=== PATIENT | female | born 1960 | race Caucasian/White ===

== ENCOUNTER 2024-08-21 10:54 | Outpatient (AMB) | payer OTHER, MEDICAID, SELFPAY ==
--- NOTE | 2024-08-21 11:02 | MHC.OFFVIS ---
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 Clinical Rn Liaison Required: No Information Interpreted: clinical only Spice Grinder: Spice Grinder Present Allergies methotrexate Allergy (Verified 08/21/24 11:11) Itching Penicillins Allergy (Verified 08/21/24 11:11) Unknown Medication List - Last Reconciled 08/21/24 by Alana Rendon CNM bupropion HCl XL 300 mg PO QAM duloxetine 60 mg PO DAILY ezetimibe 10 mg PO DAILY gabapentin 300 mg PO DAILY lisinopril 20 mg PO DAILY meloxicam 15 mg PO DAILY montelukast 10 mg PO DAILY omeprazole 20 mg PO DAILY pravastatin 80 mg PO DAILY tofacitinib ER (Xeljanz XR) 11 mg PO DAILY Post menopausal: Yes (2010) HPI HPI 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 She recently had her mammogram she lives with her family she cooks and cleans and goes for walks her she. She does not have any real glove operator or other concerns she sees her primary care provider and other physicians for her other healthcare needs. [facility] Medical History (Updated 08/21/24 @ 12:02 by Alana Rendon CNM) PTSD (post-traumatic stress disorder) Anxiety Depression Arthritis Hyperlipemia HTN (hypertension) Surgical History (Updated 08/21/24 @ 11:20 by Sharona Ogden CMA) History of lung biopsy History of dental surgery S/P Family History (Updated 08/21/24 @ 11:24 by Sharona Ogden CMA) Maternal Grandfather Colon cancer Paternal Grandfather Prostate cancer Social History (Updated 08/21/24 @ 11:25 by Sharona Ogden CMA) Alcohol intake: current Alcohol intake frequency: holidays/special occasions only Tobacco use type: Cigarette Cigarettes Per Day: 10 Female Reproductive History Menstrual Age of Menarche: 12 control method: none Total pregnancies: 1 Full term: 1 Date of last pap smear: 11/12/16 (negative) History of abnormal pap smear: No Date of Mammogram: 08/04/24 (negative) Physical Exam Vital Signs: Last Vital Signs BP 122/78 08/21/24 11:09 BMI result Body Mass Index 31.1 Const General: healthy appearing, comfortable, no acute distress, well developed and alert Nutritional Appearance: average body habitus Orientation/consciousness: patient oriented x3 Limitations: no limitations HEENT Head: Yes normocephalic Neck Neck: Yes normal visual inspection Chest Chest palpation & inspection: normal inspection of the chest Breast/axilla inspection: normal inspection of the breasts and normal inspection of the axillae Breast/axilla palpation: normal palpation of the breasts and normal palpation of the axillae Resp Effort & Inspection: normal respiratory effort GI Inspection: Yes normal to inspection, No Abdominal wall edema and No distended Palpation (GI): Soft to palpation and nontender Other: Normal postmenopausal exam atrophic vagina yellowish clear discharge cervix multiparous postmenopausal smooth mobile nontender uterus small midposition nontender fair to good Kegel adnexa nonenlarged. General: Yes bladder normal to palpation External Female Exam: normal external appearance and normal appearance of the urethra Speculum Exam - Vagina: normal appearance of the vagina, normal palpation and normal vaginal discharge Speculum Exam - Cervix: normal appearance of the cervix, normal palpation and nontender Bimanual exam- vagina & uterus: normal bimanual exam, normal palpation, uterine size normal, bladder normal to palpation, consistency normal, normal palpation, uterine mobility normal, uterine shape normal, No Cervical tenderness present, non-tender and no cervical motion tenderness Bimanual Exam- Adnexa, other: normal adnexae, no masses, normal and No adnexal tenderness Neuro General: patient oriented x3 Assessment & Plan Assessment & Plan (1) Women's annual routine gynecological examination: Code(s): Z01.419 - Encounter for gynecological examination (general) (routine) without abnormal findings Category: Medical (2) Postmenopausal: Code(s): Z78.0 - Asymptomatic menopausal state Category: Medical (3) Cervical cancer screening: Comment: No history of abnormals, has been getting them with her primary. Pap done 08/21/2024 Code(s): Z12.4 - Encounter for screening for malignant neoplasm of cervix Category: Medical Plan -----Discussed in this visit the following: healthy balanced diet, regular and consistent exercise, getting recommended health screens, doing the best she can for her particular health concerns, kegel exercises, pap smear screening and followup recommendations, mammography screening and SBE, normal changes in cycles in her life stage--- . She just had her mammogram. Discussed that in her age range her next Pap would be due in 5 years and why we say come back as a year if her other healthcare needs dictate use of that time and she is getting seen by primary care she may make her best decisions for herself about that. Coding Level of Care Code New Pt Prev Care 40-64y(77358) Diagnoses Women's annual routine gynecological examination Z01.419 Postmenopausal Z78.0 Cervical cancer screening Z12.4
[2024-08-21 11:09] VITALS: BP 122/78; BMI 31.1
== END 2024-08-21 12:22 | disposition home or self-care (01) ==
PROVIDERS: PCP Internal Medicine; Visit Provider Advanced Practice Midwife
DX: Z01.419 Encounter for gynecological examination (general) (routine) without abnormal findings (principal); Z78.0 Asymptomatic menopausal state; Z12.4 Encounter for screening for malignant neoplasm of cervix
CPT/HCPCS: 99386

== ENCOUNTER 2024-08-21 10:54 | Outpatient (REF) | payer OTHER, MEDICAID, SELFPAY ==
[2024-08-24 10:13] LABS: HPV 16,18/45 See PAP report
== END 2024-08-21 10:55 | disposition home or self-care (01) ==
LOC: HO.LNP 10:54
PROVIDERS: PCP Internal Medicine; Visit Provider Advanced Practice Midwife
DX: Z01.419 Encounter for gynecological examination (general) (routine) without abnormal findings (principal)
CPT/HCPCS: 87624; 88175

== ENCOUNTER 2024-09-07 10:12 | Outpatient (REF) | payer OTHER, MEDICAID, SELFPAY | END 2024-09-07 10:13 | disposition home or self-care (01) | LOC: HO.LNP 10:12 | PROVIDERS: PCP Internal Medicine; Visit Provider Obstetrics & Gynecology | DX: R87.610 Atypical squamous cells of undetermined significance on cytologic smear of cervix (ASC-US) (principal); R87.810 Cervical high risk human papillomavirus (HPV) DNA test positive | CPT/HCPCS: 57454; 88305 ==

== ENCOUNTER 2024-09-07 10:12 | Outpatient (AMB) | payer OTHER, MEDICAID, SELFPAY ==
--- NOTE | 2024-09-07 10:18 | MHC.OFFVIS ---
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 Required: No Information Interpreted: non-clinical & clinical Cart Attendant: Cart Attendant Present (Rosie MADRIGAL) Accompanied by: Self / Same As Patient Allergies methotrexate Allergy (Verified 09/07/24 10:21) Itching Penicillins Allergy (Verified 09/07/24 10:21) Unknown HPI Comments Details: Presenting with abnormal Pap smear showing ASCUS HPV positive negative HPV 16/18/45 [facility] Medical History PTSD (post-traumatic stress disorder) Anxiety Depression Arthritis Hyperlipemia HTN (hypertension) Surgical History History of lung biopsy History of dental surgery S/P Family History Maternal Grandfather Colon cancer Paternal Grandfather Prostate cancer Social History Alcohol intake: current Alcohol intake frequency: holidays/special occasions only Tobacco use type: Cigarette Cigarettes Per Day: 10 Female Reproductive History Menstrual Age of Menarche: 12 Physical Exam Vital Signs: Last Vital Signs BP 142/60 H 09/07/24 10:20 BMI result Body Mass Index 31.0 Office Procedures Colposcopy Colposcopy: Pre-Procedure Counseling: Before beginning the procedure, I conducted comprehensive counseling with the patient. We thoroughly discussed the procedure itself, including its details, alternatives, and all associated risks. This included but not limited to the following complications such as bleeding, infection, and injury to the vagina, bladder, and vessels, as well as the potential need for transfusion with all its associated risks. Subsequently, the patient sign the consent. Pap smear result: Ascus/HPV positive, HPV 16/18/45 negative Procedure: During the procedure, the following steps were performed: A speculum was inserted, and acetic acid was applied. Colposcopy was conducted, allowing visualization of the transformation zone. Acetowhite lesions were identified at the 3+5+6+11+12+1 o'clock position. Cervical biopsies were obtained from the 3+5+6+11+12+1 o'clock position, followed by an endocervical curettage (ECC). Vaginoscopy of the upper vagina revealed no evidence of aceto-white lesions. Hemostasis was achieved using Monsel solution, and the patient tolerated the procedure well. Post-Procedure Instructions: The patient was advised to promptly contact the office or the after hours answering service or go to the emergency room if experiencing a temperature exceeding 100.4?F, abdominal pain, nausea/vomiting, or bleeding. Additionally, the patient was instructed to abstain from vaginal intercourse and bathtub use. The patient confirmed understanding of these instructions. Discharge Instructions: The patient was instructed to schedule a follow-up appointment in 2 weeks for further evaluation and management. Please note that this note was generated using a voice recognition program, and errors may have occurred during paint roller covermaker. [id number]-[id number] of cervix including upper vagina with biopsy and ECC Procedure code (CPT) selection complete Assessment & Plan Assessment & Plan (1) ASCUS with positive high risk HPV cervical: Code(s): R87.610 - Atypical squamous cells of undetermined significance on cytologic smear of cervix (ASC-US); R87.810 - Cervical high risk human papillomavirus (HPV) DNA test positive Category: Medical Plan: Discussed with the patient the result of her abnormal pap, its significance, risk of progression, persistence, and regression. the false positive/negative rate of a Pap smear as a screening test in detecting cervical cancer and the indication for a diagnostic test -colposcopy, biopsy, endocervical curettage. The patient verbalized understanding and agreed with the plan, all questions answered. Colpo/biopsy/ECC done, see procedure note Orders: Orders AMB Colposcopy Today R87.610 - Atypical squamous cells of undetermined significance on cytologic smear of cervix (ASC-US), R87.810 - Cervical high risk human papillomavirus (HPV) DNA test positive Coding Level of Care Code Procedure Only Diagnoses ASCUS with positive high risk HPV cervical R87.610; R87.810 CPT Codes Colposcopy - CPT: 66842-Jicxmiejt of cervix including upper vagina with biopsy and ECC ([id number])
[2024-09-07 10:20] VITALS: BP 142/60; BMI 31.0
== END 2024-09-07 10:54 | disposition home or self-care (01) ==
PROVIDERS: PCP Internal Medicine; Visit Provider Obstetrics & Gynecology
DX: R87.610 Atypical squamous cells of undetermined significance on cytologic smear of cervix (ASC-US) (principal); R87.810 Cervical high risk human papillomavirus (HPV) DNA test positive
CPT/HCPCS: 57454

== ENCOUNTER 2024-09-22 08:44 | Outpatient (AMB) | payer OTHER, MEDICAID, SELFPAY ==
--- NOTE | 2024-09-22 08:49 | A.OFFVIS_ITS ---
Intake Visit Reasons: Colpo Results Platform Material Handling Supervisor: Platform Material Handling Supervisor Present (Jen) Accompanied by: Self / Same As Patient Allergies methotrexate Allergy (Verified 09/22/24 08:50) Itching Penicillins Allergy (Verified 09/22/24 08:50) Unknown HPI Comments Details: Presenting post colpo for follow-up. The patient is doing well with no complaints. The pathology showed the following: A. Endocervix, curettage: Endocervical mucosa and squamous epithelium within normal limits; no atypia identified. B. Cervix, 1 o'clock, biopsy: Scant degenerated endocervical and squamous epithelium; mucoinflammatory material; no atypia identified. C. Cervix, 3 o'clock, biopsy: Squamous and endocervical epithelium within normal limits; no atypia identified. D. Cervix, 5 o'clock, biopsy: Mildly inflamed squamous mucosa with reactive changes; no endocervical epithelium present; no atypia identified. E. Cervix, 6 o'clock, biopsy: Squamous mucosa within normal limits; no endocervical epithelium present; no atypia identified. F. Cervix, 11 o'clock, biopsy: Mildly inflamed squamous mucosa with reactive changes; no endocervical epithelium present; no atypia identified. G. Cervix, 12 o'clock, biopsy: - Low-grade squamous intraepithelial lesion (WENDY 1). - Background inflamed cervical transformation zone mucosa [facility] Medical History (Updated 09/22/24 @ 08:52 by Sylvain Austin MD) Dysplasia of cervix, low grade (WENDY 1) PTSD (post-traumatic stress disorder) Anxiety Depression Arthritis Hyperlipemia HTN (hypertension) Surgical History History of lung biopsy History of dental surgery S/P Family History Maternal Grandfather Colon cancer Paternal Grandfather Prostate cancer Social History Alcohol intake: current Alcohol intake frequency: holidays/special occasions only Tobacco use type: Cigarette Cigarettes Per Day: 10 Female Reproductive History Menstrual Age of Menarche: 12 Review of Systems Const All systems reviewed & are unremarkable except as noted in HPI and below Reports as per HPI and Reports no additional complaints GI Reports no additional complaints Reports no additional complaints Assessment & Plan Assessment & Plan (1) Dysplasia of cervix, low grade (WENDY 1): Comment: 09/06 ascus HPV positive, colpo biopsy ECC WENDY 1 Code(s): N87.0 - Mild cervical dysplasia Category: Medical Plan: Discussed with the patient the pathology results of the colposcopy biopsies & endocervical curettage ( mild dysplasia-WENDY 1). Discussed with the patient the sensitivity specificity, positive and negative predictive value in detecting cervical cancer in addition discussed the regression, persistence and progression rates. Recommended co-testing in 12 months, if cytology and or HPV are abnormal will proceed was colposcopy biopsy and endocervical curettage, if lesions gets worse or stays persistent for 2 years will proceed with loop electric excision procedure. Instructions given to the patient to schedule a co test appointment in 1 year. All questions answered the patient verbalized understanding. Coding Level of Care Code Est Pt Level 3 (96925) Diagnoses Dysplasia of cervix, low grade (WENDY 1) N87.0
== END 2024-09-22 09:04 | disposition home or self-care (01) ==
PROVIDERS: PCP Internal Medicine; Visit Provider Obstetrics & Gynecology
DX: N87.0 Mild cervical dysplasia (principal)
CPT/HCPCS: 99213

== ENCOUNTER → 2024-09-22 08:44 | Outpatient (BNVA) | payer OTHER, MEDICAID, SELFPAY | PROVIDERS: PCP Internal Medicine; Visit Provider Obstetrics & Gynecology ==

== ENCOUNTER 2024-12-09 08:42 | Outpatient (AMB) | payer OTHER, MEDICAID, SELFPAY ==
--- NOTE | 2024-12-09 08:43 | A.OFFVIS_ITS ---
Vital Signs 12/09/24 08:52 Height 5 ft 6 in Weight 198 lb BMI 32.0 BP 142/69 H Blood Pressure Location Rt brachial Position Sitting Pulse 92 Intake Visit Reasons: Colonoscopy Screening Intake Note: This patient presents for Colonoscopy Screening. Pt c/o; reports no rectal bleeding, pain, changes to bowel habits, reports her previous colonoscop[facility]. 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: No Accompanied by: Self / Same As Patient Allergies seafood Allergy (Severe, Verified 12/09/24 08:56) Unknown methotrexate Allergy (Verified 12/09/24 08:56) Itching Penicillins Allergy (Verified 12/09/24 08:56) Unknown Medication List - Last Reconciled 12/09/24 by Chang Ramos MD bupropion HCl XL 300 mg PO QAM duloxetine 60 mg PO DAILY ezetimibe 10 mg PO DAILY gabapentin 300 mg PO DAILY lisinopril 20 mg PO DAILY meloxicam 15 mg PO DAILY montelukast 10 mg PO DAILY omeprazole 20 mg PO DAILY pravastatin 80 mg PO DAILY tofacitinib ER (Xeljanz XR) 11 mg PO DAILY HPI HPI Colonoscopy Screening: Details: 64 year female referred for screening colonoscopy. She denies GI complaints. She denies a strong family history of colon cancer. She says her last colonoscopy was more than 10 years ago done in [place]. She says this was unremarkable at that time. She admits to smoking half a pack a day. [facility] Medical History (Updated 12/09/24 @ 09:10 by Chang Ramos MD) Smoker Colon cancer screening Dysplasia of cervix, low grade (WENDY 1) PTSD (post-traumatic stress disorder) Anxiety Depression Arthritis Hyperlipemia HTN (hypertension) Surgical History History of lung biopsy History of dental surgery S/P Family History Maternal Grandfather Colon cancer Paternal Grandfather Prostate cancer Social History Alcohol intake: current Alcohol intake frequency: holidays/special occasions only Tobacco use type: Cigarette Cigarettes Per Day: 10 Female Reproductive History Menstrual Age of Menarche: 12 Review of Systems Const Denies chills and Denies fever(s) Card Denies chest pain, Denies dyspnea and Denies dyspnea on exertion Resp Denies cough, Denies dyspnea and Denies dyspnea on exertion GI Denies hematochezia and Denies change in bowel habits Denies hematuria Musc Denies back pain and Denies limited range of motion Neuro Denies focal weakness and Denies convulsions Psych Denies depression and Denies mood swings Physical Exam Vital Signs: Last Vital Signs Pulse 92 12/09/24 08:52 BP 142/69 H 12/09/24 08:52 BMI result Body Mass Index 32.0 Const General: comfortable and no acute distress Orientation/consciousness: patient oriented x3 Neck Neck: Yes no lymphadenopathy Resp Auscultation: clear to auscultation bilaterally Cardio Rhythm: regular rhythm GI Palpation (GI): Soft to palpation, nontender and no guarding Neuro General: patient oriented x3 Assessment & Plan Assessment & Plan (1) Colon cancer screening: Code(s): Z12.11 - Encounter for screening for malignant neoplasm of colon Category: Medical Plan: I explained to her the technique of colonoscopy for screening. I reviewed the risks including but not limited to bleeding and perforation, as well as the benefits and alternatives. She understands and wants to proceed. Coding Level of Care Code New Pt Level 3 (29533) Diagnoses Colon cancer screening Z12.11
[2024-12-09 08:52] VITALS: BP 142/69; PULSE 92; BMI 32.0
== END 2024-12-09 09:20 | disposition home or self-care (01) ==
PROVIDERS: PCP Internal Medicine; Visit Provider Surgery
DX: Z12.11 Encounter for screening for malignant neoplasm of colon (principal)
CPT/HCPCS: 99203

== ENCOUNTER 2025-01-26 06:35 | Day surgery (SDC) | payer OTHER, MEDICAID, SELFPAY ==
[2025-01-22 09:34] VITALS: BMI 32.0
[2025-01-26 06:44] VITALS: BMI 31.3
[2025-01-26 06:47] VITALS: BP 150/74; PULSE 92; RESP 16; TEMP 36.3; O2SAT 96
[2025-01-26] MEDS: Lactated Ringers 1,000 ML 80 ML IVCONT (07:00)
--- NOTE | 2025-01-26 07:11 | HO.ANESPROP2 ---
HPI - Anesthesia Eval Consult details Narrative: For colonoscopy PMF Active Problems Active Problems: All Active Problems Colon cancer screening (Acute) ASCUS with positive high risk HPV cervical (Acute) Cervical cancer screening (Acute) Postmenopausal (Acute) Women's annual routine gynecological examination (Acute) Smoker (Acute) Dysplasia of cervix, low grade (WENDY 1) (Acute) Past Medical History Medical History (Updated 01/22/25 @ 09:30 by Kym Saul RN) Aortic ectasia GERD (gastroesophageal reflux disease) Pulmonary nodule Rheumatoid arthritis Osteopenia Osteoarthritis Smoker Dysplasia of cervix, low grade (WENDY 1) PTSD (post-traumatic stress disorder) Anxiety Depression Hyperlipemia HTN (hypertension) Family History Family History Maternal Grandfather Colon cancer Paternal Grandfather Prostate cancer Family history of problems with anesthesia: No Surgical History Surgical History (Updated 01/22/25 @ 09:26 by Kym Saul RN) H/O colonoscopy History of lung biopsy History of dental surgery S/P History of Problems with Anesthesia: No Social History Social History Alcohol intake: current Alcohol intake frequency: holidays/special occasions only Patient Tobacco Use Status: Current everyday Tobacco user Tobacco use type: Cigarette Cigarettes Per Day: 10 Use of substances other than those prescribed or required for medical reasons: No Are you DNR?: No Advance Directives: No Advance Directives Information Provided: Yes Patient : No : No Poor oral hygiene: No Meds Allergies Allergy/AdvReac Type Severity Reaction Status Date / Time seafood Allergy Severe Anaphylaxis Verified 01/26/25 06:43 methotrexate Allergy Itching Verified 12/09/24 08:56 Penicillins Allergy Anaphylaxis Verified 01/26/25 06:43 Active Medications: Current Medications Lactated Ringer's (Lr) 1,000 mls @ 80 mls/hr IVCONT .[id number] Last Admin: 01/26/25 07:00 Dose: 80 mls/hr Home Medications ?Medication ?Instructions ?Recorded ?Confirmed ?Last Taken ?Type bupropion HCl 300 mg 24 hr tablet, 300 mg PO QAM 08/21/24 01/22/25 Unknown History extended release duloxetine 60 mg capsule,delayed 60 mg PO DAILY 08/21/24 01/22/25 Unknown History release ezetimibe 10 mg tablet 10 mg PO DAILY 08/21/24 01/22/25 Unknown History gabapentin 300 mg tablet 300 mg PO DAILY 08/21/24 01/22/25 Unknown History lisinopril 20 mg tablet 20 mg PO DAILY 08/21/24 01/22/25 Unknown History meloxicam 15 mg tablet 15 mg PO DAILY 08/21/24 01/22/25 Unknown History montelukast 10 mg tablet 10 mg PO DAILY 08/21/24 01/22/25 Unknown History omeprazole 20 mg tablet,delayed 20 mg PO DAILY 08/21/24 01/22/25 Unknown History release pravastatin 80 mg tablet 80 mg PO DAILY 08/21/24 01/22/25 Unknown History tofacitinib 11 mg tablet,extended 11 mg PO DAILY 08/21/24 01/22/25 Unknown History release 24 hr (Xeljanz XR) Exam Height,Weight and Vital Signs: Height 5 ft 6 in Weight 88.1 kg Last Vital Signs Temp 97.3 F 01/26/25 06:47 Pulse 92 01/26/25 06:47 Resp 16 01/26/25 06:47 BP 150/74 H 01/26/25 06:47 Pulse Ox 96 01/26/25 06:47 O2 Del Method Room Air 01/26/25 06:47 Airway Mallampati Class: II TM Dist: <=3cm Neck ROM: Full Denture: Upper Heart: ok Lungs: ok Assessment and Plan Assessment Anesthesia Assessment: Anesthesia Plan Discussed and Chart Reviewed Final Anesthetic Review Family History of Problems with Anesthesia: No History of Problems with Anesthesia: No NPO: Yes ASA Class: II Final Preanesthetic Review: No Changes in Pt Med Stat, Meds/Allgs Chart Reviewed, Consent Obtained/Reviewed and Anes Risks/Benef Reviewed Patient Risk: Intermediate Procedure Risk: Low Anesthetic Plan Anesthetic Plan: MAC: and Agree w/ Assess. and Plan Disposition: Standard PACU
--- NOTE | 2025-01-26 07:25 | MHC.SHP ---
Pre-Procedural Eval Section A - 24 Hr Update-Section A only Date of Service: 01/26/25 Section B - Complete if H&P > 30 days Chief Complaint: screening Details of Present Illness: For colon cancer screening, no GI complaints Relevant Family History (Specify if Yes): No Relevant Social History: None Present Medications: see Short Stay Collaborative assessment Medical History: Significant History (Hypertension, smoker, anxiety depression) Allergies: Allergies Allergy/AdvReac Type Severity Reaction Status Date / Time seafood Allergy Severe Anaphylaxis Verified 01/26/25 06:43 methotrexate Allergy Itching Verified 12/09/24 08:56 Penicillins Allergy Anaphylaxis Verified 01/26/25 06:43 Review of Systems Sugical H&P ROS: Negative: Constitution, Cardiovascular, Respiratory and Gastrointestinal Exam Surgical H&P Exam: Normal: Heart, Normal: Lungs and Normal: Abdomen Plan Diagnosis/Plan: Unchanged I have reviewed the history and physical and performed a pertinent physical examination on my patient. No changes have occurred unless specified. Time Spent With Patient Time: Total time managing care of this patient today ____ minutes.
--- NOTE | 2025-01-26 08:23 | W.PM.OPN ---
Operative Note Operative Note Date of Service: 01/26/25 Narrative: Preop diagnosis: Colon cancer screening Postop diagnosis: 1. Severe diverticulosis of the sigmoid 2. Suboptimal prep Procedure: Colonoscopy Surgeon: Chang Ramos MD The patient is a 64 year old female here for screening colonoscopy. She understood the technique of the planned procedure as was the risks, benefits, and alternatives.. She was brought to the operating room. She was placed in left lateral decubitus position under monitored anesthesia care. A full digital rectal exam was done there were no palpable anal lesions. The tip of the Olympus colonoscope was gently introduced through the anal orifice advanced with insufflation . There was very heavy diverticulosis in the sigmoid in the left colon. The sigmoid was very tortuous. We had significant difficulty worsening the sigmoid and the left colon because of these. I was able to eventually reach the cecum. The cecum was intubated. The cecum was identified by visualization of the ileocecal valve as well as the appendiceal orifice. The cecal mucosa was unremarkable. The scope was gradually withdrawn with careful examination of the entire colonic mucosa being done with scope withdrawal. The patient however had suboptimal bowel prep. There was note of pulls off liquid stools in segments of the colon. We had to do a lot of copious irrigation and suctioning. Furthermore, the patient had significant diaphragmatic breathing during the procedure so visualization was difficult. There were however no significant sized lesions that seen. It was unlikely that any large lesion or polyp was missed The rectum was reached. There were no lesions seen in the anal shelf and the anal canal were unremarkable. The scope was then withdrawn completely with desufflation. The patient tolerated procedure well. There were no immediate complications However in view of the suboptimal bowel prep, and difficulty with visualization, I would recommend a shorter interval of 3-5 years. This will be explained to the patient.
[2025-01-26 08:32] VITALS: BP 103/65; PULSE 80; RESP 18; TEMP 36.2; O2SAT 97
[2025-01-26 08:47] VITALS: BP 126/66; PULSE 72; RESP 16; TEMP 36.2; O2SAT 96
== END 2025-01-26 09:04 | disposition home or self-care (01) ==
PROVIDERS: PCP Internal Medicine; Visit Provider Surgery
PROC: 0DBE8ZZ Excision of Large Intestine, Via Natural or Artificial Opening Endoscopic (ICD-10-PCS; CPT 45378; principal; 2025-01-26 07:30)
DX: Z12.11 Encounter for screening for malignant neoplasm of colon (principal); K57.30 Diverticulosis of large intestine without perforation or abscess without bleeding; I10 Essential (primary) hypertension; E78.5 Hyperlipidemia, unspecified; Z79.899 Other long term (current) drug therapy; Z88.0 Allergy status to penicillin; Z88.8 Allergy status to other drugs, medicaments and biological substances; F17.210 Nicotine dependence, cigarettes, uncomplicated; Z98.890 Other specified postprocedural states
CPT/HCPCS: 45378; J2003; J2704

== ENCOUNTER → 2025-01-26 06:35 | Outpatient (BNV) | payer OTHER, MEDICAID, SELFPAY | PROVIDERS: PCP Internal Medicine; Visit Provider Surgery | DX: Z12.11 Encounter for screening for malignant neoplasm of colon (principal); K57.90 Diverticulosis of intestine, part unspecified, without perforation or abscess without bleeding | CPT/HCPCS: 45378 ==

== ENCOUNTER 2025-02-10 10:19 | Outpatient (AMB) | payer OTHER, MEDICAID, SELFPAY ==
--- NOTE | 2025-02-10 10:25 | MHC.OFFVIS ---
Vital Signs 02/10/25 10:30 Weight 198 lb BP 147/70 H Blood Pressure Location Rt brachial Position Sitting Pulse 80 Intake Visit Reasons: S/P colonoscopy Intake Note: Patient here s/p colonoscopy on 01-26-2025. Reports procedure went well. Environmental Programs Specialist Required: No Accompanied by: Self / Same As Patient Allergies seafood Allergy (Severe, Verified 02/10/25 10:29) Anaphylaxis methotrexate Allergy (Verified 02/10/25 10:29) Itching Penicillins Allergy (Verified 02/10/25 10:29) Anaphylaxis Medication List - Last Reconciled 02/10/25 by Chang Ramos MD bupropion HCl XL 300 mg PO QAM duloxetine 60 mg PO DAILY ezetimibe 10 mg PO DAILY gabapentin 300 mg PO DAILY lisinopril 20 mg PO DAILY meloxicam 15 mg PO DAILY montelukast 10 mg PO DAILY omeprazole 20 mg PO DAILY pravastatin 80 mg PO DAILY sodium,potassium,mag sulfates 17.5-3.13-1.6 gram (Suprep Bowel Prep Kit) DILUTE; drink full amount early evening before AND next morning at least 2 hr before procedure; follow w 960 mL water PO tofacitinib ER (Xeljanz XR) 11 mg PO DAILY HPI HPI S/P colonoscopy: Details: She underwent colonoscopy for screening last 01/29/2025. She tolerated procedure well. She denies significant complaints at this time. [facility] Medical History Aortic ectasia GERD (gastroesophageal reflux disease) Pulmonary nodule Rheumatoid arthritis Osteopenia Osteoarthritis Smoker Dysplasia of cervix, low grade (WENDY 1) PTSD (post-traumatic stress disorder) Anxiety Depression Hyperlipemia HTN (hypertension) Surgical History H/O colonoscopy (01/26/25) History of lung biopsy History of dental surgery S/P Family History Maternal Grandfather Colon cancer Paternal Grandfather Prostate cancer Social History Alcohol intake: current Alcohol intake frequency: holidays/special occasions only Patient Tobacco Use Status: Current everyday Tobacco user Tobacco use type: Cigarette Cigarettes Per Day: 10 Female Reproductive History Menstrual Age of Menarche: 12 Review of Systems Const Denies chills and Denies fever(s) Card Denies chest pain Resp Denies cough GI Denies abdominal pain Physical Exam Vital Signs: Last Vital Signs Pulse 80 02/10/25 10:30 BP 147/70 H 02/10/25 10:30 Const General: comfortable and no acute distress Resp Effort & Inspection: normal respiratory effort Cardio Rate: regular rate GI Palpation (GI): Soft to palpation Assessment & Plan Assessment & Plan (1) Colon cancer screening: Code(s): Z12.11 - Encounter for screening for malignant neoplasm of colon Category: Medical Plan: Status post colonoscopy. I did not see any polyps. However, her bowel prep was suboptimal. I am therefore going to recommend her to undergo another colonoscopy in the next 3-5 years She understands the plan and is comfortable with this. Coding Level of Care Code Est Pt Level 2 (55205) Diagnoses Colon cancer screening Z12.11
[2025-02-10 10:30] VITALS: BP 147/70; PULSE 80
--- OUTSIDE RECORDS SUMMARY | 2025-02-10 11:32 | XMS_ITS | Encounter Summary ---
Author Organization [facility] Address [address] [place] [address] Care Team Providers Care Director Of Player Personnel Name Role Phone Franco León MD Primary Care Provider [phone] Encounter Details Date Type Department Care Team (Late st Contact Info) Description 02/03/2025 Telephone Gastroenterology - [address] [facility] [address] [place] [id number] Jef Phillips MD [address] [facility] [address] [place], [place] [id number] Social History Tobacco Use Types Packs/Day Years Used Date Smoking Tobacco: Never Assessed Comments Unknown Sex and Gender Information Value Date Recorded Sex Assigned at Not on file Legal Sex Female 8:46 AM EDT Gender Identity Not on file Sexual Orientation Not on file documented as of this encounter Progress Notes * Belkis Rose - 02/09/2025 8:20 AM EDT 2nd attempt to schedule an appointment patient left message to call back * Belkis Rose - 02/04/2025 2:22 PM EDT 1st attempt to schedule an appointment patient left message to call back Ask pt hx [facility] only * Radha Chairez MA - 02/03/2025 9:41 AM EDT MEDS/ALLERGIES UPDATED * Yesika Doherty - 02/03/2025 9:03 AM EDT REFERRAL RECEIVED FROM [facility] OFFICE FOR COLON--PASSED TO [facility] FOR MED AND ALLERGY UPDATE documented in this encounter Plan of Treatment Not on file documented as of this encounter Visit Diagnoses Not on filedocumented in this encounter Historical Medications * This list may reflect changes made after this encounter. calcium carbonate-vit D3-min 600 mg-10 mcg (400 unit) tablet Take by mouth. fluticasone propionate (FLONASE) 50 mcg/actuation nasal spray Administer 1 spray into each nostril 1 (one) time each day. Shake gently. Before first use, prime pump. After use, clean tip and replace cap. EPINEPHrine (ADRENALIN) 1 mg/mL nasal solution Administer into each nostril if needed. ezetimibe (ZETIA) 10 mg tablet 02/02/2025 buPROPion XL (WELLBUTRIN XL) 300 mg 24 hr tablet Take 1 tablet (300 mg total) by mouth 1 (one) time each day in the morning. 12/31/2024 gabapentin (GRALISE) 300 mg 24 hr tablet TAKE 1/2 TO 1 TABLET BY MOUTH EVERY NIGHT AT BEDTIME NEEDED 02/01/2025 ibuprofen (ADVIL,MOTRIN) 800 mg tablet Take 1 tablet (800 mg total) by mouth every 8 (eight) hours. for 5 days 06/26/2024 lisinopriL (PRINIVIL,ZESTRI L) 20 mg tablet Take 1 tablet (20 mg total) by mouth 1 (one) time each day. 01/08/2025 montelukast (SINGULAIR) 10 mg tablet Take 1 tablet (10 mg total) by mouth 1 (one) time each day. 11/02/2024 albuterol HFA (PROAIR HFA ; PROVENTIL HFA ; VENTOLIN HFA) 90 mcg/actuation inhaler Inhale 2 puffs by mouth. every 4 to 6 hours as needed 01/08/2025 omeprazole (PriLOSEC) [address] capsule Take 1 capsule (20 mg total) by mouth 1 (one) time each day. 01/31/2025 DULoxetine (CYMBALTA) [address] capsule Take 1 capsule (60 mg total) by mouth 1 (one) time each day. 01/19/2025 pravastatin (PRAVACHOL) 80 mg tablet Take 1 tablet (80 mg total) by mouth 1 (one) time each day. 02/01/2025 Xeljanz XR 11 mg ER tablet 01/19/2025 meloxicam (MOBIC) 15 mg tablet 01/27/2025 added in this encounter Care Teams Director Of Player Personnel Relationship Specialty Start Date End Date Franco León MD [address] [place] [id number] PCP - General Internal Medicine 02/03/25 documented as of this encounter
--- OUTSIDE RECORDS SUMMARY | 2025-02-10 11:32 | XMS_ITS | Clinical Summary ---
Author Organization [facility] [address] [facility] Address [address] [place] [address] Phone Care Team Providers Care Delivery Department Supervisor Name Role Phone Franco León MD Primary Care Provider [phone] Allergies Active Allergy Reactions Criticality Noted Date Comments Amoxicillin 02/03/2025 Lovastatin 02/03/2025 Methotrexate 02/03/2025 Infliximab 02/03/2025 Simvastatin 02/03/2025 Medications meloxicam (MOBIC) 15 mg tablet 5 Active Xeljanz XR 11 mg ER tablet 5 Active pravastatin (PRAVACHOL) 80 mg tablet Take 1 tablet (80 mg total) by mouth 1 (one) time each day. 5 Active DULoxetine (CYMBALTA) [address] capsule Take 1 capsule (60 mg total) by mouth 1 (one) time each day. 5 Active omeprazole (PriLOSEC) [address] capsule Take 1 capsule (20 mg total) by mouth 1 (one) time each day. 5 Active albuterol HFA (PROAIR HFA ; PROVENTIL HFA ; VENTOLIN HFA) 90 mcg/actuation inhaler Inhale 2 puffs by mouth. every 4 to 6 hours as needed 5 Active montelukast (SINGULAIR) 10 mg tablet Take 1 tablet (10 mg total) by mouth 1 (one) time each day. 5 Active lisinopriL (PRINIVIL,ZESTR IL) 20 mg tablet Take 1 tablet (20 mg total) by mouth 1 (one) time each day. 5 Active ibuprofen (ADVIL,MOTRIN) 800 mg tablet Take 1 tablet (800 mg total) by mouth every 8 (eight) hours. for 5 days 4 Active gabapentin (GRALISE) 300 mg 24 hr tablet TAKE 1/2 TO 1 TABLET BY MOUTH EVERY NIGHT AT BEDTIME NEEDED 5 Active buPROPion XL (WELLBUTRIN XL) 300 mg 24 hr tablet Take 1 tablet (300 mg total) by mouth 1 (one) time each day in the morning. 5 Active ezetimibe (ZETIA) 10 mg tablet 5 Active EPINEPHrine (ADRENALIN) 1 mg/mL nasal solution Administer into each nostril if needed. Active fluticasone propionate (FLONASE) 50 mcg/actuation nasal spray Administer 1 spray into each nostril 1 (one) time each day. Shake gently. Before first use, prime pump. After use, clean tip and replace cap. Active calcium carbonate-vit D3-min 600 mg-10 mcg (400 unit) tablet Take by mouth. Ac tive Encounters Date Type Department Care Team Description 02/03/2025 Telephone Gastroenterology - [address] [facility] [address] [place] [phone] Jef Phillips MD from Last 3 Months Social History Tobacco Use Types Packs/Day Years Used Date Smoking Tobacco: Never Assessed Comments Unknown Sex and Gender Information Value Date Recorded Sex Assigned at Not on file Legal Sex Female 8:46 AM EDT Gender Identity Not on file Sexual Orientation Not on file Plan of Treatment Health Maintenance Due Date Last Done Comments Breast Cancer Screening 1962 COVID-19 Vaccine (#1) 1967 DTaP,Tdap,and Td Vaccines (1 - Tdap) 1981 Cervical Cancer Screening: P ap Smear 1983 Pneumococcal Vaccine: 50+ Ye ars (1 of 1 - PCV) 2012 Zoster Vaccines (1 of 2) 2012 Colorectal Cancer Screening: Colonoscopy 02/03/2025 Depression Screening 02/03/2025 HIV Screening 02/03/2025 Hepatitis C Screening 02/03/2025 Social Influencers of Health Screening 02/03/2025 Influenza Vaccine (Season Ended) 2025 RSV Immunization Adult Patie nts (1 - 1-dose 75+ series) 2037 HIB Vaccines Aged Out No longer eligi ble based on patient's age to complete this topic HPV Vaccines Aged Out No longer eligi ble based on patient's age to complete this topic Hepatitis A Vaccines Aged Out No long er eligible based on patient's age to complete this topic Hepatitis B Vaccines Aged Out No long er eligible based on patient's age to complete this topic IPV Vaccines Aged Out No longer eligi ble based on patient's age to complete this topic MMR Vaccines Aged Out No longer eligi ble based on patient's age to complete this topic Meningococcal ACWY Vaccine Aged Out N o longer eligible based on patient's age to complete this topic Meningococcal B Vaccine Aged Out No l onger eligible based on patient's age to complete this topic Pneumococcal Vaccine: Pediat rics (0 to 5 Years) and At-Risk Patients (6 to 64 Years) Aged Out No longer eligible b ased on patient's age to complete this topic RSV Immunization Patients Un jared 20 months Aged Out No longer eligible b ased on patient's age to complete this topic Varicella Vaccines Aged Out No longer eligible based on patient's age to complete this topic Insurance [facility] [address] [place] [address] MEDICAID - [place] Care Teams Delivery Department Supervisor Relationship Specialty Start Date End Date Franco León MD [address] [place] [phone] PCP - General Internal Medicine 02/03/25
== END 2025-02-10 10:38 | disposition home or self-care (01) ==
LOC: HO.HGS 10:19
PROVIDERS: PCP Internal Medicine; Visit Provider Surgery
DX: Z12.11 Encounter for screening for malignant neoplasm of colon (principal)
CPT/HCPCS: 99212